=== PATIENT | male | born 2000 | race African-American/Black ===

== ENCOUNTER 2024-02-03 21:48 | Emergency (ER) | payer MEDICAID ==
[~2024-02-03] VITALS: Ht 188 cm; Wt 91.0 kg
[~2024-02-03 21:48] MED LIST: ALBU25PO2
[2024-02-03 22:17] VITALS: TEMP 98.3
[2024-02-03 22:57] VITALS: PULSE 113; RESP 20; O2SAT 96
[2024-02-03] MEDS: ALBUTEROL (0.083%) 2.5MG/3ML NEB HHN STA (22:57)
[2024-02-03] MEDS: IPRATROPIUM BROMIDE (0.02%) 0.5MG/2.5ML NEB HHN STA (22:57)
[2024-02-03] MEDS: METHYLPREDNISOLONE SOD SUCC 125MG/2ML (ACT-O-VIAL) IV STA (23:17)
[2024-02-03] MEDS: MAGNESIUM 2 G PREMIX 50 ML IV STA (23:17)
[2024-02-04] MEDS ORDERED: PRED10TA MT (01:03)
[2024-02-04] MEDS ORDERED: ALBU90AE INH (01:03)
[2024-02-04 01:25] VITALS: BP 122/60; PULSE 116; RESP 23; O2SAT 90
== END 2024-02-04 01:28 | disposition home or self-care (01) ==
LOC: ER 21:48
DX: J45.901 Unspecified asthma with (acute) exacerbation (principal); F84.0 Autistic disorder
CPT/HCPCS: 71045; 94640; 94070; 98960; 96365; 96366; 96375; 99284; J3475; J2919; Z7610 ×3; 94664; A4606